=== PATIENT | male | born 1960 | race Caucasian/White ===

== ENCOUNTER 2022-01-23 08:39 | Emergency (ER) | payer BC ==
[2022-01-23] MEDS ORDERED: Aspirin 81 MG Tab.Chew PO ONE (08:43)
[2022-01-23] MEDS ORDERED: Morphine 2 MG/ML SYRINGE IVPUSH ONE (08:44)
[2022-01-23] MEDS ORDERED: Sodium Chloride 0.9% 10 ML Syringe FLUSH PRN (08:44)
[2022-01-23 09:12] LABS: CHLORIDE,CL 106 mEq/L (98-106); SODIUM,NA 140 mEq/L (136-145)
[2022-01-23 09:13] LABS: ESTIMATED GFR 86 mL/min (>=60)
[2022-01-23] MEDS ORDERED: Take Home: Cyclobenzaprine 10 MG Tab, 4 Tab Pack PO ONE (09:30)
== END 2022-01-23 09:45 | disposition home or self-care (01) ==
LOC: CC.ED 08:39
DX: R07.81 Pleurodynia (principal); M62.838 Other muscle spasm
CPT/HCPCS: 36415; 71045; 80053; 84484; 85025; 86140; 93005; 93010; 96374; 99284; 99285-25; A9270-GY; J2270